=== PATIENT | female | born 1975 | race Caucasian/White ===

== ENCOUNTER 2017-04-23 22:29 | Emergency (ER) | payer OTHER ==
[2017-04-23] MEDS ORDERED: NS 1,000 ML IV ONE (22:54)
[2017-04-23] MEDS ORDERED: KETOROLAC 30 MG/1 ML SDV IVP ONE (22:54)
--- NOTE | 2017-04-23 22:59 | EDPHY ---
H & P Stated Complaint: n/v. abd pain Time Seen by Provider: 04/23/17 22:37 HPI/ROS: HPI The patient presents with abdominal pain which began suddenly at approximately 8 :00 p.m. tonight which is described as a crampy, dull ache in her lower abdomen which she rates at an 8/10. Shortly after the pain began she vomited several times and had about of diarrhea. This subsided, however she was left with the pain. This occurred while she was to attending a concert and had a few beers to drink previously. She was evaluated in the medical 1st aid tent and she was encouraged to seek medical care. Her last menstrual period was 1 week ago. She has had some lower abdominal pains previously which are mild, however this is much more severe. The pain is been constant.. REVIEW OF SYSTEMS Constitutional: No fever, no chills. Eyes: No discharge. ENT: No sore throat. Cardiovascular: No chest pain, no palpitations. Respiratory: No cough, no shortness of breath. Gastrointestinal: See HPI Genitourinary: No hematuria. Musculoskeletal: No back pain. Skin: No rashes. Neurological: No headache. PMHx: Hypothyroidism Soc Hx: Occasional alcohol use PHYSICAL General Appearance: Alert, no distress Eyes: Pupils equal and round no pallor or injection ENT, Mouth: Mucous membranes moist Respiratory: There are no retractions, lungs are clear to auscultation Cardiovascular: Regular rate and rhythm Gastrointestinal: Abdomen is soft with tenderness in both lower quadrants without rebound or guarding, no masses, bowel sounds normal Neurological: A&O, moves all extremities Skin: Warm and dry, no rashes Musculoskeletal: Neck is supple non tender Extremities: symmetrical, full range of motion Psychiatric: Patient is oriented X 3, there is no agitation Source: Patient Exam Limitations: No limitations - Personal History LMP (Females 10-55): 8-14 Days Ago Current Tetanus/Diphtheria Vaccine: Yes - Medical/Surgical History Hx Asthma: No Hx Chronic Respiratory Disease: No Hx Diabetes: No Hx Cardiac Disease: No Hx Renal Disease: No Hx Cirrhosis: No Hx Alcoholism: No Hx HIV/AIDS: No Hx Splenectomy or Spleen Trauma: No Other PMH: PMHx: hypothyroid. PSHx: L knee - Social History Smoking Status: Never smoked Constitutional: Initial Vital Signs Temperature (C) 36.5 C 04/23/17 22:32 Heart Rate 88 04/23/17 22:32 Respiratory Rate 16 04/23/17 22:32 Blood Pressure 112/73 04/23/17 22:32 O2 Sat (%) 97 04/23/17 22:32 O2 Delivery Mode Room Air Allergies/Adverse Reactions: No Known Allergies Allergy (Unverified 05/12/11 21:34) Home Medications: Medication Instructions Recorded Levothyroxine 04/23/17 Medical Decision Making - Diagnostics Imaging Results: Imaging Impressions Pelvic/Renal Ultrasound 04/23/17 22:55 Impression: 1. Large left ovarian cyst containing debris is identified. This should be followed up to ensure complete resolution. 2. See above report for additional findings. Results called and discussed with Maryellen Bird MD on 04/23/2017 at 23:54 Imaging: Discussed imaging studies w/ rural carrier Radiologist, I viewed and interpreted images myself Differential Diagnosis: This is a 42-year-old healthy female who presents with several hours of lower abdominal pain associated with an episode of vomiting and diarrhea. On exam, she is well-appearing, she does have tenderness in her lower abdomen which is mild to moderate in severity. Differential diagnosis includes ruptured ovarian cyst, ovarian torsion, gastroenteritis, diverticulitis. In the emergency room IV was established and the patient was given a L of normal saline for presumed volume depletion. She was given a dose of Toradol with improvement in her symptoms. Labs were checked and were relatively unremarkable. Ultrasound revealed a large left-sided ovarian cyst without any evidence of torsion. I suspect this is likely the cause of her symptoms. She is followed by OBGYN Dr. Ogden and I have advised her that she will need to follow up for repeat ultrasound. I have encouraged her to take ibuprofen as needed for pain. I will send her home with a pill pack for [place] for the next 1-2 days. - Data Points Laboratory Results: Laboratory Results 04/23/17 22:45 04/23/17 22:45 04/23/17 04/23/17 04/23/17 23:20 22:45 22:45 WBC 12.95 10^3/uL H 10^3/uL (3.80-9.50) RBC 4.43 10^6/uL 10^6/uL (4.18-5.33) Hgb 14.4 g/dL g/dL (12.6-16.3) Hct 42.8 % % (38.0-47.0) MCV 96.6 fL fL (81.5-99.8) MCH 32.5 pg pg (27.9-34.1) MCHC 33.6 g/dL g/dL (32.4-36.7) RDW 13.1 % % (11.5-15.2) Plt Count 239 10^3/uL 10^3/uL (150-400) MPV 9.5 fL fL (8.7-11.7) Neut % (Auto) 79.6 % H % (39.3-74.2) Lymph % (Auto) 14.4 % L % (15.0-45.0) Swain % (Auto) 4.3 % L % (4.5-13.0) Eos % (Auto) 0.8 % % (0.6-7.6) Baso % (Auto) 0.4 % % (0.3-1.7) Nucleat RBC Rel Count 0.0 % % (0.0-0.2) Absolute Neuts (auto) 10.29 10^3/uL H 10^3/uL (1.70-6.50) Absolute Lymphs (auto) 1.87 10^3/uL 10^3/uL (1.00-3.00) Absolute Monos (auto) 0.56 10^3/uL 10^3/uL (0.30-0.80) Absolute Eos (auto) 0.11 10^3/uL 10^3/uL (0.03-0.40) Absolute Basos (auto) 0.05 10^3/uL 10^3/uL (0.02-0.10) Absolute Nucleated RBC 0.00 10^3/uL 10^3/uL (0-0.01) Immature Gran % 0.5 % % (0.0-1.1) Immature Gran # 0.07 10^3/uL 10^3/uL (0.00-0.10) Sodium 142 mEq/L mEq/L (134-144) Potassium 3.7 mEq/L mEq/L (3.5-5.2) Chloride 104 mEq/L mEq/L (97-110) Carbon Dioxide 21 mEq/l L mEq/l (22-31) Anion Gap 17 mEq/L H mEq/L (8-16) BUN 14 mg/dL mg/dL (7-23) Creatinine 1.0 mg/dL mg/dL (0.6-1.0) Estimated GFR > 60 Glucose 79 mg/dL mg/dL (70-100) Calcium 9.2 mg/dL mg/dL (8.5-10.4) Total Bilirubin 1.1 mg/dL mg/dL (0.1-1.4) Conjugated Bilirubin 0.3 mg/dL mg/dL (0.0-0.5) Unconjugated Bilirubin 0.8 mg/dL mg/dL (0.0-1.1) AST 26 IU/L IU/L (14-46) ALT 31 IU/L IU/L (9-52) Alkaline Phosphatase 47 IU/L IU/L (38-126) Total Protein 7.3 g/dL g/dL (6.3-8.2) Albumin 4.4 g/dL g/dL (3.5-5.0) Beta HCG, Quant < 2.39 mIU/mL mIU/mL (0-4.83) Urine Color YELLOW Urine Appearance CLEAR Urine pH 5.0 (5.0-7.5) Ur Specific [place] 1.009 (1.002-1.030) Urine Protein NEGATIVE (NEGATIVE) Urine Ketones NEGATIVE (NEGATIVE) Urine Blood NEGATIVE (NEGATIVE) Urine Nitrate NEGATIVE (NEGATIVE) Urine Bilirubin NEGATIVE (NEGATIVE) Urine Urobilinogen NEGATIVE EU EU (0.2-1.0) Ur Leukocyte Esterase NEGATIVE (NEGATIVE) Urine Glucose NEGATIVE (NEGATIVE) Medications Given: Discontinued Medications Hydrocodone Bitart/Acetaminophen ([place] 5/325mg Prepack#6) 1 btl TAKEHOME EDNOW ONE Stop: 04/24/17 00:08 Last Admin: 04/24/17 00:20 Dose: 1 btl Sodium Chloride (Ns) 1,000 mls @ 0 mls/hr IV EDNOW ONE; Wide Open PRN Reason: Protocol Stop: 04/23/17 22:55 Last Admin: 04/23/17 22:57 Dose: 1,000 mls Ketorolac Tromethamine (Toradol) 15 mg IVP EDNOW ONE Stop: 04/23/17 22:55 Last Admin: 04/23/17 22:59 Dose: 15 mg Departure - Departure Disposition: Home, Routine, Self-Care Clinical Impression: Ovarian cyst Condition: Good Instructions: Hydrocodone/Acetaminophen (By mouth), Ovarian Cyst (ED) Additional Instructions: Your testing today showed that you have a cyst on your left ovary that is about 7 cm in diameter. This may resolve on its own, however I would like you to follow up with your OBGYN in the next few days. You should take ibuprofen 400 mg every 6 hours for pain. If the pain is more severe, you can take 1 tab of pain medication on top of this. Please return to the emergency room if your worse in any way. Referrals: Jenn Ogden MD [Medical Doctor] - As per Instructions
[2017-04-23 23:02] LABS: % IMMATURE GRANULYOCYTES 0.5 % (0.0-1.1); ABSOLUTE IMMATURE GRANULOCYTES 0.07 10^3/uL (0.00-0.10); ADD DIFF? NO; ADD MORPH? NO; ADD SCAN? NO; ATYPICAL LYMPHOCYTE FLAG 0 (0-99); FRAGMENT RBC FLAG 0 (0-99); HEMATOCRIT 42.8 % (38.0-47.0); HEMOGLOBIN 14.4 g/dL (12.6-16.3); LEFT SHIFT FLG 0 (0-99); LIPEMIA HEMOLYSIS FLAG 80 (0-99); MEAN CELL HEMOGLOBIN 32.5 pg (27.9-34.1); MEAN CELL HEMOGLOBIN CONCENTR. 33.6 g/dL (32.4-36.7); MEAN CELL VOLUME 96.6 fL (81.5-99.8); MEAN PLATELET VOLUME 9.5 fL (8.7-11.7); PLATELET CLUMPS FLAG 0 (0-99); PLATELET COUNT 239 10^3/uL (150-400); RED BLOOD CELL COUNT 4.43 10^6/uL (4.18-5.33); RED CELL DISTRIBUTION WIDTH 13.1 % (11.5-15.2)
[2017-04-23 23:08] LABS: ALANINE AMINOTRANSFERASE 31 IU/L (9-52); ALBUMIN 4.4 g/dL (3.5-5.0); ALKALINE PHOSPHATASE 47 IU/L (38-126); ANION GAP 17 mEq/L (8-16); ASPARTATE AMINOTRANSFERASE 26 IU/L (14-46); BILIRUBIN,TOTAL 1.1 mg/dL (0.1-1.4); BILIRUBIN-CONJUGATED 0.3 mg/dL (0.0-0.5); BILIRUBIN-UNCONJUGATED 0.8 mg/dL (0.0-1.1); CALCIUM 9.2 mg/dL (8.5-10.4); CARBON DIOXIDE 21 mEq/l (22-31); CHLORIDE 104 mEq/L (97-110); GLOMERULAR FILTRATION RATE > 60; GLUCOSE 79 mg/dL (70-100); POTASSIUM 3.7 mEq/L (3.5-5.2); SODIUM 142 mEq/L (134-144); TOTAL PROTEIN 7.3 g/dL (6.3-8.2)
[2017-04-23 23:33] LABS: COLOR YELLOW; LEUKOCYTE ESTERASE,URINE NEGATIVE (NEGATIVE); NITRITE,URINE NEGATIVE (NEGATIVE)
[2017-04-23 23:51] VITALS: RESP 20
[2017-04-24] MEDS ORDERED: HYDROCOD/APAP 5/325 PREPACK#6 BTL TAKEHOME ONE (00:07)
[2017-04-24 00:33] VITALS: BP 108/68; PULSE 86; TEMP 98.6; O2SAT 94
== END 2017-04-24 00:33 | disposition home or self-care (01) ==
DX: N83.202 Unspecified ovarian cyst, left side (principal); E86.9 Volume depletion, unspecified
CPT/HCPCS: 96374; J1885

== ENCOUNTER 2017-05-20 08:57 | Day surgery (SDC) | payer OTHER ==
--- NOTE | 2017-05-19 18:24 | GHP ---
[f rep st] PREOP HISTORY AND PHYSICAL DATE OF ADMISSION: 05/20/2017 The surgery is to be performed is tomorrow, 05/20/2017, at 10:30 a.m. Surgery to be performed is a laparoscopic left ovarian cystectomy. Surgeon, Dr. Jenn Ogden. PREOPERATIVE DIAGNOSIS: Complex left ovarian cyst and pelvic pain. HISTORY OF PRESENT ILLNESS: The patient is a 42-year-old 0 with a last menstrual period of 05/04/2017, who has presented as a followup from an ER visit with a diagnosis of a complex left ovar juvenal cyst. She began having acute pain on April 25, 2017. She had pelvic pressure, sharp pain in he r pelvis radiating to her abdomen. No vaginal bleeding. She felt dizzy and lightheaded. She was s een in the emergency department and was diagnosed with a complex left ovarian mass. Ultrasound was on 04/23/2017, measuring 6.9 x 6.0 x 4.0 cm with internal debris. Normal flow to both ovaries. Kristal rome was normal in size with an endometrium of 1.2 cm in thickness. Patient was given pain medicine and discharged home. She had followup in our office. The pain had gradually subsided but had episo shant where it waxed and waned. Followup ultrasound on 05/12 showed the cyst to be present and slight ly bigger in size, now measuring 7.4 x 4.9 x 6.3 cm. Complex, thicker areas within the cystic mass. Again, right ovary was normal. Uterus was normal. Upon questioning patient of her symptoms, she does report that she has had pelvic pressure, pelvic pain that has corresponded with her menstrual c ycle over the last 3-4 cycles, has been increasing in intensity until her ER visit on the . Base d on the ultrasound evaluation as well as her presentation, I suspect that this complex mass is caus ing her pain, likely endometrioma or hemorrhagic cyst and I gave her treatment options of expectant management versus surgical management. The patient desires to try to conceive soon and I recommende d surgical management for diagnosis and treatment in the setting of desiring to conceive. The patie nt is in agreement with this. The patient's only significant past medical history is hypothyroidism . She is well controlled on levothyroxine and has had recent labs that were stable. PAST SURGICAL HISTORY: Knee arthroscopic surgery. No other surgeries. No abdominal surgery. ALLERGIES: She has no known drug allergies. OB HISTORY: She has never been . SPEECH CLINICIAN HISTORY: She has had a normal menstrual triad. She has been on control pills and NuvaRin g for contraception in her life. Recently, she has been off contraception because she is desiring t o conceive. SOCIAL HISTORY: She was recently approximately 1 year ago. She lives with her . 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 She den ies tobacco. Has social alcohol use 1 glass a day. No drug use. Half-cup of coffee a day and regu lar exercise daily. FAMILY HISTORY: Her dad has AAA and has had 2 pulmonary emboli resulting from his surgeries. Her m om had breast cancer at age 47. She also has recent lung problems. No other significant family his tory. REVIEW OF SYSTEM: Ten-point review of systems of the patient was negative except for as above in HP I. PHYSICAL EXAMINATION: VITAL SIGNS: Blood pressure is 110/62. Weight is 131. GENERAL: She is a w ell-developed, well-nourished white female in no acute distress. LUNGS: Clear to auscultation bila terally. HEART: Regular rate and rhythm. No murmurs. ABDOMEN: Soft, nontender, nondistended. N ormal bowel sounds. PELVIC: Normal external genitalia. Normal nulliparous cervix. Uterus is ante verted, anteflexed. The left complex cyst is palpable near the uterus and moderately tender. No re bound or guarding. ASSESSMENT/PLAN: 42-year-old 0 with a complex left ovarian mass suspicious for endometrioma or hemorrhagic cyst. The patient was consented for the procedure today. She understood the risks and benefits. The risks including bleeding, infection, damage to the organs, uterus, tubes, ovaries , bowel, bladder, nerves, blood vessels, ureters, need for open procedure, need for additional proce dures, and need for oophorectomy. She understood these risks and benefits, agreed to proceed. /[id number]/MODL
[~2017-05-20 08:57] MED LIST: ceFAZolin 2 GM/DEXTROSE 100 ML IV ONE
[2017-05-20] MEDS ORDERED: SILVER NITRATE APPLICATOR 1 APPL TP ONE (09:00)
[2017-05-20] MEDS ORDERED: BUPIVACAINE/EPI 0.5% 30 ML SDV ONE (09:10)
[2017-05-20] MEDS ORDERED: MIDAZOLAM 2 MG/2 ML VIAL IVP ONE (09:20)
--- NOTE | 2017-05-20 09:20 | PDANEPAE ---
ANE History of Present Illness 42 year old female presents for ovarian cystectomy. ANE Past Medical History - Cardiovascular History Hx Hypertension: No Hx Arrhythmias: No Hx Chest Pain: No Hx Coronary Artery / Peripheral Vascular Disease: No Hx CHF / Valvular Disease: No Hx Palpitations: No Cardiovascular History Comment: RUNS LOW BP - Pulmonary History Hx COPD: No Hx Asthma/Reactive Airway Disease: No Hx Recent Upper Respiratory Infection: No Hx Oxygen in Use at Home: No Hx Sleep Apnea: No Sleep Apnea Screening Result - Last Documented: Negative - Neurologic History Hx Cerebrovascular Accident: No Hx Seizures: No Hx Dementia: No - Endocrine History Hx Diabetes: No Hypothyroid: Yes Hyperthyroid: No Obesity: no Endocrine History Comment: HYPOTHYROID -LEVOTHYROXINE - Renal History Hx Renal Disorders: No - Liver History Hx Hepatic Disorders: No - Neurological & Psychiatric Hx Hx Neurological and Psychiatric Disorders: No - Cancer History Hx Cancer: No - Congenital Disorder History Hx Congenital Disorders: No - GI History GERD: mild Hx Gastrointestinal Disorders: No - Other Health History Other Health History: NEG - Chronic Pain History Chronic Pain: No - Surgical History Prior Surgeries: KNEE L 10 YRS AGO ANE Review of Systems Review of systems is: negative - Exercise capacity Exercise capacity: >=4 METS METS (RN): 5 METS ANE Patient History - Allergies Allergies/Adverse Reactions: No Known Allergies Allergy (Unverified 05/12/11 21:34) - Home Medications Home medications: home medication list seen and reviewed Home Medications: Levothyroxine 04/23/17 [Last Taken Unknown] - NPO status NPO Status: no food or drink >8 hours - Anes Hx Anes Hx: no prior problems - Smoking Hx Smoking Status: Former smoker - Alcohol Use Alcohol Use: Rarely - Family Anes Hx Family Anes Hx: neg - N/A Family Hx Anesthesia Complications: NEG ANE Labs/Vital Signs - Labs Result Diagrams: 05/20/17 09:51 - Vital Signs Vital Signs: reviewed preoperatively; see RN documention for details Height: 170.18 cm Weight: 59.421 kg ANE Physical Exam - Airway Neck exam: FROM Mallampati Score: Class 2 Mouth exam: normal dental/mouth exam - Pulmonary Pulmonary: no respiratory distress - Cardiovascular Cardiovascular: regular rate and rhythym - ASA Status ASA Status: II ANE Anesthesia Plan Anesthesia Plan: general endotracheal anesthesia
[2017-05-20] MEDS ORDERED: SCOPOLAMINE HYDROBROMIDE 1 MG/3 DAYS PATCH TD SCH (09:30)
[2017-05-20] MEDS ORDERED: LIDOCAINE 1% 2 ML INJ ONE (09:35)
[2017-05-20] MEDS ORDERED: LR 1,000 ML IV ONE (09:39)
[2017-05-20] MEDS ORDERED: CEFAZOLIN 2 GM/DEXTROSE/100 ML BAG IV ONE (09:42)
--- NOTE | 2017-05-20 10:04 | PDHPUP ---
History & Physical Update H&P update statement: This history and physical update is based on an assessment of the patient which was completed after admission or registration (within 24 hours), but prior to the surgery/procedure.
[2017-05-20 10:07] LABS: HEMOGLOBIN 15.1 g/dL (12.6-16.3); MEAN CELL HEMOGLOBIN 32.3 pg (27.9-34.1); MEAN CELL HEMOGLOBIN CONCENTR. 34.3 g/dL (32.4-36.7); MEAN CELL VOLUME 94.2 fL (81.5-99.8); RED BLOOD CELL COUNT 4.67 10^6/uL (4.18-5.33); RED CELL DISTRIBUTION WIDTH 12.8 % (11.5-15.2)
[2017-05-20] MEDS ORDERED: PROPOFOL 200 MG/20 ML VIAL ONE (10:37)
[2017-05-20] MEDS ORDERED: LIDOCAINE 2% 5 ML SDV ONE (10:37)
[2017-05-20] MEDS ORDERED: fentaNYL 100 MCG/2 ML INJ ONE ×3 (10:37→12:52)
[2017-05-20] MEDS ORDERED: ROCURONIUM 50 MG/5 ML VIAL ONE (10:37)
[2017-05-20] MEDS ORDERED: ONDANSETRON 4 MG/2 ML VIAL ONE (10:37)
[2017-05-20] MEDS ORDERED: DEXAMETHASONE 4 MG/ML VIAL ONE (10:37)
[2017-05-20] MEDS ORDERED: METHYLENE BLUE 0.5% 50 MG/10 ML AMP ONE (11:01)
[2017-05-20] MEDS ORDERED: ONDANSETRON 4 MG/2 ML VIAL IVP PRN (11:32)
[2017-05-20] MEDS ORDERED: MEPERIDINE 25 MG/ML SYR IVP PRN (11:32)
[2017-05-20] MEDS ORDERED: LR 500 ML IV PRN (11:32)
[2017-05-20] MEDS ORDERED: NALOXONE HCL 0.4 MG/ML INJ IVP PRN (11:32)
[2017-05-20] MEDS ORDERED: fentaNYL 100 MCG/2 ML INJ IVP PRN (11:32)
[2017-05-20] MEDS ORDERED: HYDROmorphONE/DILAUDID 1 MG/ML SYR IVP PRN (11:32)
[2017-05-20] MEDS ORDERED: KETOROLAC 30 MG/1 ML SDV ONE (12:21)
[2017-05-20] MEDS ORDERED: SUGAMMADEX SODIUM 200 MG/2 ML VIAL IVP ONE (12:27)
[2017-05-20] MEDS ORDERED: IBUPROFEN 600 MG TAB PO PRN (12:56)
[2017-05-20] MEDS ORDERED: HYDROCODONE/APAP 5/325 TAB PO PRN (12:57)
--- NOTE | 2017-05-20 13:03 | POSTOPPROG ---
Post Op Note Date of Operation: 05/20/17 Surgeon: Jenn Ogden Diesel Technician Mechanic: Dr Alexsandra Andrew Anesthesiologist: Dr. Henok Almaguer Anesthesia: GET(General Endotracheal) Pre-op Diagnosis: Left ovarian complex cyst and pelvic pain Post-op Diagnosis: same Procedure: laparoscopic left ovarain cystectomy, treatment of endometriosis, tubal dye Findings: endometrioma, pelvic endometriosis Inf/Abcess present in the surg proc area at time of surgery?: No Depth: Organ Space EBL: 50-100 Total fluids administered: 2500 Specimen(s): left ovarian cyst wall
--- NOTE | 2017-05-20 13:22 | POSTANESTH ---
Post Anesthetic Evaluation Cardiovascular Status: Normal, Stable Respiratory Status: Normal, Stable Level of Consciousness/Mental Status: Can Participate in Eval Pain Control: Adequate, Prn Tx Ordered Nausea/Vomiting Control: Adequate, Prn Tx Ordered Complications Possibly Related to Anesthesia: None Noted
[2017-05-20] MEDS ORDERED: IBUPROFEN 200 MG TAB PO ONE (14:20)
[2017-05-20 14:25] VITALS: TEMP 97.3
[2017-05-20 14:26] VITALS: BP 91/63; PULSE 64; RESP 14; O2SAT 94
--- NOTE | 2017-05-20 16:12 | GOP ---
[f rep st] OPERATIVE REPORT DATE OF OPERATION: 05/20/2017 SURGEON: Jenn Ogden MD MEMS DEVICE SCIENTIST: Dr. Hilary Andrew. ANESTHESIA: General anesthesia. ANESTHESIOLOGIST: Dr. Henok Almaguer. PREOPERATIVE DIAGNOSIS: Complex left ovarian cyst and pelvic pain. POSTOPERATIVE DIAGNOSIS: Complex left ovarian cyst and pelvic pain, plus endometriosis. PROCEDURE PERFORMED: FINDINGS: SPECIMENS: Left ovarian cyst wall. ESTIMATED BLOOD LOSS: Less than 100 cc. INDICATIONS: The patient is a 42-year-old 0, who was 1st seen in the emergency department a t the beginning of April secondary to acute pelvic pain and pressure; sharp pain in her pelvis, rad iating up to her upper abdomen, and feeling dizzy and lightheaded. [facility] which revealed a complex left ovarian mass that measured 6.9 x 6.0 x 4.0 cm with internal debris. Normal flow to both ovaries. Uterus was normal. The patient was gi karina pain medication and discharged home. She felt acutely better but continued to have some lower p elvic pressure and discomfort. Followup ultrasound on 05/12 showed that the cyst was present and sli ghtly larger in size, now measuring 7.4 x 4.9 x 6.3 cm, had complex thicker areas within the cystic mass. Right ovary was normal. Uterus was normal. She, in retrospect, has been having pain during her ovulation time of her menstrual cycles for the last 3-4 months, requiring pain medicine, comprom ising work and other life activities. I feel that the appearance of the cyst appears to be an endom etrioma versus a hemorrhagic ovarian cyst, and the chronicity of it, as well as the fact that it is getting larger, makes me concerned that it would not resolve on its own. We discussed treatment opt ions, and the patient agreed to surgical management. She was consented for the procedure. She unde rstood the risks and benefits. The risks including bleeding, infection, damage to an organ: Uterus , tubes, ovaries, bowel, bladder, nerves, blood vessels, ureters, need for oophorectomy, need for op en procedure, and other procedures. She understood these risks and benefits and agreed to proceed. DESCRIPTION OF PROCEDURE: The patient was taken into the operating room, where she was placed under general anesthesia without difficulty. She was prepped and draped in the dorsal lithotomy position , and a Guthrie catheter was placed in her bladder. After a WHO time-out was performed, an open-sided speculum was placed in the vagina, and an atraumatic tenaculum was placed on the anterior lip of th e cervix. The acorn uterine manipulator was placed through the cervical os and attached to the bharath culum. The syringe with methylene blue was also attached to the acorn. Attention was then turned t o the abdominal portion of the procedure. After injection of Marcaine, a 5 mm skin incision was mad e in the infraumbilical skin fold. A Veress needle was placed through that incision. Pneumoperiton eum was created with carbon dioxide gas and a5 mm trocar was placed through that incision. The vipin ent was placed in steep Trendelenburg. We injected Marcaine into the right lower quadrant. A 5 mm skin incision was made, and a 5 mm atraumatic trocar was placed through that incision, and a 1 cm tr ocar was placed in the left side. Gross inspection of the pelvis revealed a normal uterus, normal r ight tube and ovary. Left ovary was enlarged and stuck in the left lower pelvic area. With manipul ation with an atraumatic grasper, an attempt to elevate the ovary out of the pelvic cul-de-sac cause d the cyst rupture, and there was noted to be "dark chocolate" cyst fluid that extruded. That fluid was then suctioned with the suction household coordinator. The wall of the ovary was grasped, and the defect w as copiously irrigated with warm normal saline. We identified the cyst wall separate from the ovari an cortex and, with alternating graspers, we removed the cyst wall in segments from the ovarian anil ex. Small areas of bleeding along the ovarian cortex were cauterized with the LigaSure, and care wa s taken to remove the entire cyst wall and cauterize any remaining bleeding vessels, and the pieces were removed through the 10 mm trocar port. We inspected the pelvis, and there was noted to be endo metriosis throughout the entire pelvis, in the anterior and posterior cul-de-sacs specifically, and also in areas of the right ovary and the pelvic side wall. We used the LigaSure monopolar to cauter ize the areas that were safe to cauterize in the anterior and posterior cul-de-sacs along the uteros acral ligaments of the right ovary. We did not cauterize spots in the right pelvic sidewall as to c oncerns of the vessels and the ureters. We performed a tubal dye study, and there was noted to be n ormal extrusion of the dye through both fallopian tubes. We placed Avitene powder into the right ov bruce cortex for hemostasis, and good hemostasis was assured. A thorough inspection of the pelvis w as performed, and there was noted to be a normal appendix, normal liver and gallbladder. The pneumo peritoneum was allowed to escape. The fascia was repaired on the left lower quadrant 1 cm port with 0 Vicryl in a running fashion, and the skin was closed with 4-0 Monocryl. The tenaculum was remove d. There was no bleeding at the level of the cervix, and good hemostasis was assured. The patient tolerated the procedure well. Sponge, lap, needle, and instrument counts were correct x2. Patient went to the recovery room in good condition. FLUID REPLACEMENT: 2000 cc. URINE OUTPUT: 100 cc. /[id number]/MODL
[2017-05-23] MEDS ORDERED: PATCH REMOVAL 1 EA PATCH TD SCH (09:21)
== END 2017-05-20 15:01 | disposition home or self-care (01) ==
LOC: FSGY 08:57
PROVIDERS: ATTEND Obstetrics & Gynecology
PROC: 3E0P7KZ Introduction of Other Diagnostic Substance into Female Reproductive, Via Natural or Artificial Opening (ICD-10-PCS; principal; 2017-05-20 10:30)
PROC: 0U5F4ZZ Destruction of Cul-de-sac, Percutaneous Endoscopic Approach (ICD-10-PCS; principal; 2017-05-20 10:30)
PROC: 0UB14ZZ Excision of Left Ovary, Percutaneous Endoscopic Approach (ICD-10-PCS; principal; 2017-05-20 10:30)
CPT/HCPCS: J0690; J1100; J1885; J2250; J2405; J2704; J3010; Q9968

== ENCOUNTER → 2017-07-02 | Outpatient (CLI) | payer OTHER | LOC: FIMAGING 15:37 | PROVIDERS: ATTEND Obstetrics & Gynecology | DX: Z12.31 Encounter for screening mammogram for malignant neoplasm of breast (principal); Z80.3 Family history of malignant neoplasm of breast | CPT/HCPCS: G0202 ==

== ENCOUNTER → 2018-07-29 | Outpatient (CLI) | payer OTHER | LOC: BMCIMAGING 14:51 | PROVIDERS: ATTEND Obstetrics & Gynecology | DX: Z12.31 Encounter for screening mammogram for malignant neoplasm of breast (principal); Z80.3 Family history of malignant neoplasm of breast ==